=== PATIENT | female | born 1960 | race Hispanic/Latino ===

== ENCOUNTER 2020-08-22 10:56 | Emergency (ER) | payer SELFPAY ==
[~2020-08-22] VITALS: Ht 152.4 cm; Wt 73.9 kg
[2020-08-22 11:03] VITALS: BP 109/79
[2020-08-22] MEDS ORDERED: MUPI22O TP (12:42)
[2020-08-22] MEDS ORDERED: CLIN-141 PO (12:42)
[2020-08-22] MEDS ORDERED: ACET325C6 PO (12:42)
[2020-08-22] MEDS ORDERED: SULF1TAB42 PO (12:42)
== END 2020-08-22 13:11 | disposition home or self-care (01) ==
LOC: EDH 10:56
DX: L02.31 Cutaneous abscess of buttock (principal); E66.9 Obesity, unspecified; Z79.899 Other long term (current) drug therapy